=== PATIENT | male | born 1980 | race Asian ===

== ENCOUNTER 2018-07-01 21:49 | Emergency (ER) | payer OTHER ==
--- NOTE | 2018-07-01 22:07 | EDPHY ---
H & P Stated Complaint: allergic rxn - itching rash to face/L chest/neck since 1400, unk cause Time Seen by Provider: 07/01/18 22:07 HPI/ROS: HPI CHIEF COMPLAINT: Rash, possible allergic reaction HISTORY OF PRESENT ILLNESS: 38-year-old male, presents emergency room with a rash on his chest, back, face states it itches, started around 2:00 p.m. Or 8 hr ago. He has had this before and has been contribute food allergies. He is unsure what he ate today that may have caused this he did have wall-nuts which he typically does not eat. He denies trouble swallowing, denies trouble breathing, denies chest pain or shortness of breath or vomiting. Main complaint itchy rash. Past Medical History: Denies significant medical history Past Surgical History: Denies significant surgical history Social History: Denies daily use of drugs alcohol tobacco. Occasional alcohol use. Works in a restaurant business. Family History: Noncontributory ROS REVIEW OF SYSTEMS: 10 Systems were reviewed and negative with the exception of the elements mentioned in the history of present illness. Exam Constitutional appears well nontoxic, triage nursing summary reviewed, vital signs reviewed, awake/alert. Eyes normal conjunctivae and sclera, EOMI, PERRLA. HENT oropharynx unremarkable no tongue swelling, no sublingual swelling, uvula midline, no stridor, no trouble swallowing normal inspection, atraumatic, moist mucus membranes, no epistaxis, neck supple/ no meningismus, no raccoon eyes. Respiratory clear to auscultation bilaterally, normal breath sounds, no respiratory distress, no wheezing. Cardiovascular rate normal, regular rhythm, no murmur, no edema, distal pulses normal. Gastrointestinal soft, non-tender, no rebound, no guarding, normal bowel sounds, no distension, no pulsatile mass. Genitourinary no CVA tenderness. Musculoskeletal no midline vertebral tenderness, full range of motion, no calf swelling, no tenderness of extremities, no meningismus, good pulses, neurovascularly intact. Skin urticaria and erythema to the anterior chest wall, and on lower face, and upper back. No particular purpura. Neurologic awake, alert and oriented x 3, AAOx3, moves all 4 extremities equally, motor intact, sensory intact, CN II-XII intact, normal cerebellar, normal vision, normal speech. Psychiatric normal mood/affect. Heme/Lymph/Immune no lymphadenopathy. Differential Diagnosis: Includes but is not limited to in a particular order urticaria, allergic reaction, food allergy, severe allergic reaction, anaphylaxis Medical Decision Making: Plan for this patient oral medications including oral Benadryl, Decadron, Pepcid. Re-evaluation. Re-evaluation: Source: Patient - Medical/Surgical History Hx Asthma: No Hx Chronic Respiratory Disease: No Hx Diabetes: No Hx Cardiac Disease: No Hx Renal Disease: No Hx Cirrhosis: No Hx Alcoholism: No Hx HIV/AIDS: No Hx Splenectomy or Spleen Trauma: No Other PMH: none - Social History Smoking Status: Never smoked Constitutional: Initial Vital Signs Temperature (C) 36.3 C 07/01/18 21:53 Heart Rate 75 07/01/18 21:53 Respiratory Rate 16 07/01/18 21:53 Blood Pressure 138/85 H 07/01/18 21:53 O2 Sat (%) 97 07/01/18 21:53 O2 Delivery Mode Room Air Allergies/Adverse Reactions: resveratrol [grapes] Allergy (Verified 07/01/18 21:59) Home Medications: Medication Instructions Recorded Famotidine [Pepcid 20 MG (*)] 20 mg PO BID #6 tab 07/02/18 diphenhydrAMINE [Benadryl 25 MG 25 mg PO BID #6 tab 07/02/18 (*)] predniSONE 60 mg PO DAILY #9 tab 07/02/18 Medical Decision Making - Data Points Medications Given: Discontinued Medications Dexamethasone (Decadron Injection) 10 mg PO EDNOW ONE Stop: 07/01/18 22:12 Last Admin: 07/01/18 22:27 Dose: 10 mg Diphenhydramine HCl (Benadryl) 50 mg PO EDNOW ONE Stop: 07/01/18 22:12 Last Admin: 07/01/18 22:27 Dose: 50 mg Famotidine (Pepcid) 20 mg PO EDNOW ONE Stop: 07/01/18 22:12 Last Admin: 07/01/18 22:27 Dose: 20 mg Departure - Departure Disposition: Home, Routine, Self-Care Clinical Impression: Allergic reaction Qualifiers: Encounter type: initial encounter Qualified Code(s): T78.40XA - Allergy, unspecified, initial encounter Condition: Good Instructions: Urticaria (ED), Anaphylaxis (ED), Allergies (ED) Additional Instructions: 1. Prescriptions provided for the next 3 days. 2. Return emergency room if you have any worsening symptoms including facial swelling, trouble breathing, trouble swallowing, worsening rash. 3. If you have further allergic reaction symptoms return immediately to the ER. Referrals: NONE *PRIMARY CARE P,. [Primary Care Provider] - As per Instructions Prescriptions: diphenhydrAMINE [Benadryl 25 MG (*)] 25 mg PO BID #6 tab Famotidine [Pepcid 20 MG (*)] 20 mg PO BID #6 tab predniSONE 60 mg PO DAILY #9 tab
[2018-07-01] MEDS ORDERED: diphenhydrAMINE 25 MG CAP PO ONE (22:11)
[2018-07-01] MEDS ORDERED: FAMOTIDINE 20 MG TAB PO ONE (22:11)
[2018-07-01] MEDS ORDERED: DEXAMETHASONE 4 MG/ML VIAL PO ONE (22:11)
[2018-07-02 00:41] VITALS: BP 96/64
== END 2018-07-02 00:59 | disposition home or self-care (01) ==
DX: T78.40XA Allergy, unspecified, initial encounter (principal)
CPT/HCPCS: J1100